=== PATIENT | male | born 1985 ===

== ENCOUNTER 2020-06-14 13:00 | Emergency (ER) | payer SELFPAY ==
--- NOTE | 2020-06-14 16:54 | Emergency Department Report ---
Blank Doc - Documentation Documentation: 34-year-old reportedly displaced male from from [facility] presents emergency department complaining of severe headache and shortness of breath for undisclosed amount of time and reports having flareups of his panic attack. He is reporting reporting a loss of hearing that was secondary to a medical procedure in [facility] which accounted for his recent hearing loss he has been back in the [place] over the last 4 days and having extreme issues both medical and social This initial assessment/diagnostic orders/clinical plan/treatment(s) is/are subject to change based on patients health status, clinical progression and re- assessment by fellow clinical providers in the ED. Further treatment and workup at subsequent clinical providers discretion. Patient/guardian urged not to elope from the ED as their condition may be serious if not clinically assessed and managed. Initial orders include: Labs EKG CT scan
--- NOTE | 2020-06-14 17:33 | XRay Report ---
XR chest routine 2V INDICATION / CLINICAL INFORMATION: SOB COMPARISON: None available. FINDINGS: SUPPORT DEVICES: None. HEART / MEDIASTINUM: No significant abnormality. LUNGS / PLEURA: Lungs are clear. Costophrenic sulci are sharp. No pneumothorax. ADDITIONAL FINDINGS: No significant additional findings. IMPRESSION: 1. No acute findings. Signer Name: Derek Cardenas MD Signed: 06/14/2020 5:29 PM Workstation Name: [id number]
--- NOTE | 2020-06-14 17:49 | Cat Scan Report ---
CT BRAIN: 06/14/2020 INDICATION / CLINICAL INFORMATION: Headache. COMPARISON: None available. FINDINGS: BRAIN/INTRACRANIAL STRUCTURES: Unenhanced CT images of the brain demonstrate no evidence of acute int racranial abnormality. Ventricles and sulci are normal in size and shape. There is no evidence of hemorrhage or mass. There are no abnormal extra-axial fluid collections. EXTRACRANIAL STRUCTURES: Unremarkable. IMPRESSION: Negative unenhanced CT of the brain. All CT scans at this location are performed using dose reduction to ALARA by means of automated expos ure control. Signer Name: Ronak Lara MD Signed: 06/14/2020 5:45 PM Workstation Name: [id number]
[2020-06-14 18:38] LABS: Hematocrit 44.2 % (35.5-45.6); Hemoglobin 14.8 gm/dl (11.8-15.2); Mean Corpuscular HGB Conc 34 % (32-34); Mean Corpuscular Volume 94 fl (84-94); Platelet Count 154 K/mm3 (140-440); Red Blood Count 4.69 M/mm3 (3.65-5.03); Red Cell Distribution Width 13.7 % (13.2-15.2)
[2020-06-14 18:45] LABS: Alanine Aminotransferase 11 units/L (7-56); Albumin 4.4 g/dL (3.9-5); BUN/Creatinine Ratio 16; Blood Urea Nitrogen 18 mg/dL (9-20); Eosinophils % (Auto) 0.2 % (0.0-4.3); Hemolysis Index 26; Lymphocytes % (Auto) 32.7 % (13.4-35.0); Monocytes % (Auto) 5.2 % (0.0-7.3)
[2020-06-14 18:46] LABS: Basophils % (Auto) 0.2 % (0.0-1.8)
[2020-06-14 18:47] LABS: Lymphocytes # (Auto) 2.7 K/mm3 (1.2-5.4); Monocytes # (Auto) 0.4 K/mm3 (0.0-0.8)
[2020-06-14 18:57] VITALS: BP 115/90
== END 2020-06-15 | disposition left against medical advice (07) ==
LOC: ED 13:00
DX: R51.9 Headache, unspecified (principal); R06.2 Wheezing; Z53.21 Procedure and treatment not carried out due to patient leaving prior to being seen by health care provider
CPT/HCPCS: 36415; 70450; 71046; 80053; 85007; 85025; 93005